=== PATIENT | male | born 1990 | race Caucasian/White ===

== ENCOUNTER 2016-10-25 15:39 | Emergency (ER) | payer MEDICAID ==
[~2016-10-25] VITALS: Ht 177.8 cm; Wt 79.4 kg
[2016-10-25] MEDS ORDERED: MORPHINE SULFATE INJ 4 MG/ML DISP.SYRIN ONE (16:07)
[2016-10-25] MEDS ORDERED: ONDANSETRON 4 MG TAB.RAPDIS ONE (16:07)
[2016-10-25 16:19] VITALS: BP 132/67
[2016-10-25] MEDS ORDERED: ONDANSETRON 4 MG TAB.RAPDIS SL ONE (16:30)
[2016-10-25] MEDS ORDERED: MORPHINE SULFATE INJ 2 MG/ML DISP.SYRIN IM ONE (16:30)
[2016-10-25 16:43] LABS: APPEARANCE,URINE CLEAR (CLEAR); BILIRUBIN,URINE NEGATIVE (NEGATIVE); BLOOD, URINE NEGATIVE Ery/uL (NEGATIVE); COLOR,URINE YELLOW (YELLOW); KETONES,URINE 1+ (NEGATIVE); LEUKOCYTE ESTERASE ,URINE NEGATIVE (NEGATIVE); NITRITE, URINE NEGATIVE (NEGATIVE); PH,URINE 6.5 (5.0-8.0); PROTEIN,URINE NEGATIVE (NEGATIVE); UGLUCOSE NEGATIVE (NEGATIVE); UROBILINOGEN,URINE 0.2 EU/dL (0.2)
[2016-10-25 16:53] LABS: BACTERIA,URINE None seen /HPF (None Seen); MUCUS,URINE Few /LPF (None Seen); RBC,URINE NONE SEEN /HPF (0-2); SQUAMOUS EPITHELIAL CELL,UR Few /HPF (None Seen)
== END 2016-10-25 16:59 | disposition home or self-care (01) ==
LOC: ER 15:40
DX: M54.41 Lumbago with sciatica, right side (principal)
CPT/HCPCS: 81001; 96372; 99283; A4606; J2270; Q0162; Z7610; 81000-TC